=== PATIENT | female | born 1970 | race Caucasian/White ===

== ENCOUNTER 2018-10-12 08:33 | Day surgery (SDC) | payer OTHER ==
[~2018-10-12 08:33] MED LIST: Lactated Ringers 1,000 ML IV SCH; Lidocaine 1%/Sod Bicarbonate in NS 8.4% 1 ML Syringe IDERM PRN; Sodium Chloride 0.9% 10 ML Syringe FLUSH PRN
[2018-10-12] MEDS ORDERED: Midazolam 1 MG/ML 2 ML SDV ONE ×2 (09:10→10:33)
[2018-10-12] MEDS ORDERED: fentaNYL 250 MCG/5 ML SDV ONE ×2 (09:10→10:33)
[2018-10-12] MEDS ORDERED: Ondansetron 4 MG/2 ML SDV ONE ×2 (09:10→10:33)
[2018-10-12] MEDS ORDERED: Propofol 200 MG/20 ML SDV ONE ×3 (09:10→11:17)
[2018-10-12] MEDS ORDERED: Ketorolac 30 MG/ML SDV ONE (09:10)
[2018-10-12] MEDS ORDERED: Albuterol 0.083% 2.5 MG/3 ML Neb Soln NEB ONE (10:00)
[2018-10-12] MEDS ORDERED: Lidocaine 1% with EPINEPHrine 1:100,000 20 ML MDV ONE (10:20)
--- NOTE | 2018-10-12 10:22 | PCM.PREANE ---
Preanesthetic Assessment - Anesthesia/Transfusion/Family Hx Anesthesia History: Prior Anesthesia Without Reaction Family History of Anesthesia Reaction: No - Review of Systems General: No Symptoms Pulmonary: No Symptoms, Other (Asthma/COPD Spiriva this morning and preop neb treatment given.) Cardiovascular: No Symptoms Gastrointestinal: No Symptoms Neurological: Pre-Existing Deficit (Chronic Back Pain. Does not radiate to either leg. History of a medial branch block. ) Other: Reports: None (History of smoking, methamphetamine, marijuana use has not used in one year. ), Depression, Anxiety - Physical Assessment NPO Status Date: 10/11/18 NPO Status Time: 21:30 O2 Sat by Pulse Oximetry: 94 Respiratory Rate: 16 Vital Signs: Last Vital Signs Temp 36.1 C 10/12/18 08:45 Pulse 70 10/12/18 08:45 Resp 16 10/12/18 08:45 BP 121/67 10/12/18 08:45 Pulse Ox 95 10/12/18 09:15 Height: 1.68 m Weight: 117.027 kg ASA Class: 2 Mental Status: Alert & Oriented x3 Airway Class: Mallampati = 2 Dentition: Reports: Normal Dentition Thyro-Mental Finger Breadths: 3 Mouth Opening Finger Breadths: 3 ROM/Head Extension: Full Lungs: Clear to Auscultation, Normal Respiratory Effort Cardiovascular: Regular Rate, Regular Rhythm - Lab Values: Laboratory Last Values WBC 7.55 K/mm3 (3.98-10.04) 10/12/18 09:00 RBC 4.60 M/mm3 (3.98-5.22) 10/12/18 09:00 Hgb 12.5 gm/L (11.2-15.7) 10/12/18 09:00 Hct 39.6 % (34.1-44.9) 10/12/18 09:00 MCV 86.1 fl (79.4-94.8) 10/12/18 09:00 MCH 27.2 pg (25.6-32.2) 10/12/18 09:00 MCHC 31.6 g/dl (32.2-35.5) L 10/12/18 09:00 RDW Std Deviation 40.7 fL (36.4-46.3) 10/12/18 09:00 Plt Count 278 K/mm3 (182-369) 10/12/18 09:00 MPV 8.7 fl (9.4-12.3) L 10/12/18 09:00 Neut % (Auto) 67.5 % (34.0-71.1) 10/12/18 09:00 Lymph % (Auto) 25.0 % (19.3-51.7) 10/12/18 09:00 Randall % (Auto) 4.5 % (4.7-12.5) L 10/12/18 09:00 Eos % (Auto) 2.6 (0.7-5.8) 10/12/18 09:00 Baso % (Auto) 0.1 % (0.1-1.2) 10/12/18 09:00 Neut # (Auto) 5.09 K/mm3 (1.56-6.13) 10/12/18 09:00 Lymph # (Auto) 1.89 K/mm3 (1.18-3.74) 10/12/18 09:00 Randall # (Auto) 0.34 K/mm3 (0.24-0.36) 10/12/18 09:00 Eos # (Auto) 0.20 K/mm3 (0.04-0.36) 10/12/18 09:00 Baso # (Auto) 0.01 K/mm3 (0.01-0.08) 10/12/18 09:00 Urine HCG, Qual Negative (NEGATIVE) 10/12/18 08:43 - Allergies Allergies/Adverse Reactions: Allergies Allergy/AdvReac Type Severity Reaction Status Date / Time pollen extracts Allergy Cannot Verified 10/11/18 15:58 Remember - Acknowledgements Anesthesia Type Planned: General Anesthesia Pt an Appropriate Candidate for the Planned Anesthesia: Yes Alternatives and Risks of Anesthesia Discussed w Pt/Guardian: Yes Pt/Guardian Understands and Agrees with Anesthesia Plan: Yes PreAnesthesia Questionnaire HEENT History: Reports: Impaired Vision, Other (See Below) Other HEENT History: wears glasses Cardiovascular History: Reports: None Respiratory History: Reports: Asthma Gastrointestinal History: Reports: Cholelithiasis Genitourinary History: Reports: None, Other (See Below) Other Genitourinary History: bartholian gland cyst FAB[employer]ICATION M[employer]ELDER History: Reports: None Other Musculoskeletal History: knee arthroscopy, low back pain Neurological History: Reports: None Psychiatric History: Reports: Schizophrenia Endocrine/Metabolic History: Reports: None Hematologic History: Reports: None Immunologic History: Reports: None Oncologic (Cancer) History: Reports: None Dermatologic History: Reports: None - Past Surgical History Head Surgeries/Procedures: Reports: None Cardiovascular Surgical History: Reports: None Respiratory Surgical History: Reports: None GI Surgical History: Reports: Cholecystectomy Female Surgical History: Reports: Section, D&C Endocrine Surgical History: Reports: None Neurological Surgical History: Reports: None Musculoskeletal Surgical History: Reports: None Oncologic Surgical History: Reports: None Dermatological Surgical History: Reports: None - SUBSTANCE USE Smoking Status *Q: Former Smoker - HOME MEDS Home Medications: Home Meds Albuterol Sulfate [Proair Hfa] 1 - 2 puff INH Q6H PRN 10/11/18 [History] Albuterol/Ipratropium [DuoNeb 3.0-0.5 MG/3 ML] 1 dose NEB QID PRN 10/11/18 [ History] Aspirin [Adult Aspirin] 81 mg PO DAILY 10/11/18 [History] Divalproex Sodium [Depakote] 500 mg PO BEDTIME 10/11/18 [History] Levonorgestrel [Mirena] 1 dose VAG ASDIRECTED 10/11/18 [History] QUEtiapine [SEROquel] 100 mg PO DAILY 10/11/18 [History] Simvastatin [Zocor] 10 mg PO DAILY 10/11/18 [History] Tiotropium [Spiriva HandiHaler] 2 puff INH BID 10/11/18 [History] - CURRENT (IN HOUSE) MEDS Current Meds: Current Medications Lactated Ringer's (Ringers, Lactated) 1,000 mls @ 125 mls/hr IV ASDIRECTED KAMAR Stop: 10/12/18 23:00 Last Admin: 10/12/18 09:00 Dose: 125 mls/hr Lidocaine/Sodium Bicarbonate (Buffered Lidocaine 1% In Ns 8.4%) 0.25 ml IDERM ONETIME PRN PRN Reason: Prior to IV Start Stop: 10/12/18 18:00 Last Admin: 10/12/18 08:59 Dose: 0.25 ml Sodium Chloride (Saline Flush) 10 ml FLUSH ASDIRECTED PRN PRN Reason: Keep Vein Open Stop: 10/12/18 18:00 Discontinued Medications Albuterol (Proventil Neb Soln) 2.5 mg NEB ONETIME ONE Stop: 10/12/18 10:01 Last Admin: 10/12/18 09:15 Dose: 2.5 mg Fentanyl (Sublimaze) Confirm Administered Dose 250 mcg .ROUTE .STK-MED ONE Stop: 10/12/18 09:11 Ketorolac Tromethamine (Toradol) Confirm Administered Dose 30 mg .ROUTE .STK- MED ONE Stop: 10/12/18 09:11 Midazolam HCl (Versed 1 Mg/Ml) Confirm Administered Dose 2 mg .ROUTE .STK-MED ONE Stop: 10/12/18 09:11 Ondansetron HCl (Zofran) Confirm Administered Dose 4 mg .ROUTE .STK-MED ONE Stop: 10/12/18 09:11 Propofol (Diprivan 20 Ml) Confirm Administered Dose 200 mg .ROUTE .STK-MED ONE Stop: 10/12/18 09:11
[2018-10-12] MEDS ORDERED: Dexamethasone 4 MG/ML 5 ML MDV ONE (10:33)
[2018-10-12] MEDS ORDERED: Lidocaine 1% 4 ML ONE (10:33)
[2018-10-12] MEDS ORDERED: Sodium Chloride 0.9% 50 ML SDV ONE (10:58)
--- NOTE | 2018-10-12 11:41 | PCM48HPAN ---
Post Anesthesia Note - EVALUATION WITHIN 48HRS OF ANESTHETIC Vital Signs in Normal Range: Yes Patient Participated in Evaluation: Yes Respiratory Function Stable: Yes Airway Patent: Yes Cardiovascular Function Stable: Yes Hydration Status Stable: Yes Pain Control Satisfactory: Yes Nausea and Vomiting Control Satisfactory: Yes Mental Status Recovered: Yes Pulse Rate: 68 SaO2: 93 Resp Rate: 14 Temperature: 36.2 C Blood Pressure: 111/58
--- NOTE | 2018-10-12 11:49 | PCM.OPNOTE ---
- General Post-Op/Procedure Note Date of Surgery/Procedure: 10/12/18 Operative Procedure(s): bartholin cyst marsupulization Findings: sinus tract from prior cyst Pre Op Diagnosis: recurrent bartholin cyst Post-Op Diagnosis: Same Anesthesia Technique: MAC Primary Surgeon: Catrachita Zepeda Anesthesia Provider: aSthish Dodd Fluid Replacement, Intraop: 900 EBL in mLs: 10 Complications: None Condition: Good Free Text/Narrative:: Area of prior cyst noted. Tract and opening visualized. Injected with lidocaine with epi. Opened and dissected along tract and gland not evident consistent with history of past excision. Cavity along sinus tract opened up and stitched open with 3-0 vicryl. Excellent hemostasis.
== END 2018-10-12 12:07 | disposition home or self-care (01) ==
LOC: JD.SDS 08:33
PROVIDERS: ATTEND Obstetrics & Gynecology
DX: N82.8 Other female genital tract fistulae (principal); J45.909 Unspecified asthma, uncomplicated; E78.5 Hyperlipidemia, unspecified; Z87.891 Personal history of nicotine dependence; Z79.899 Other long term (current) drug therapy
CPT/HCPCS: 36415; 56440; 81025; 85025; 93005; 94640; J1100; J2001; J2250; J2405; J2704; J3010; J7120; 00940; J1885